=== PATIENT | male | born 1950 | race Caucasian/White ===

== ENCOUNTER → 2018-04-03 12:20 | Outpatient (CLI) | payer MEDICARE, SELFPAY ==
[2018-04-03 12:46] LABS: ALB/GLOB Ratio 0.9 RATIO (0.9-2.4); AST(SGOT) 15 U/L (15-37); Alanine Aminotransfer ALT/SGPT 25 U/L (16-61); Albumin, Serum 3.4 g/dL (3.2-5.0); Alkaline Phosphatase 72 U/L (45-117); Anion Gap 4 (5-15); BUN 18 mg/dL (7-18); BUN/Creat Ratio 19.8 RATIO (10-20); Calcium,Total 8.5 mg/dL (8.5-10.1); Chloride 106 mmol/L (98-107); Cholesterol 150 mg/dL (200); Creatinine, Serum 0.91 mg/dL (0.70-1.30); EST Glomerular Filtration Rate 88 mL/min (>60); Est Glom Filt Rate - Afr Amer 107 mL/min (>60); Globulin 3.7 g/dL (2.2-4.2); Glucose 113 mg/dL (74-106); High Density Lipoprotein 41 mg/dL; Potassium 4.1 mmol/L (3.5-5.1); Protein, Total 7.1 g/dL (6.4-8.2); Sodium Level 139 mmol/L (136-145); Triglycerides 157 mg/dL; Very Low Density Lipoprotein 31 mg/dL (5-40)
== END ==
PROVIDERS: Family Provider Family Medicine; PCP Family Medicine; Visit Provider Family Medicine
DX: Z00.00 Encounter for general adult medical examination without abnormal findings (principal); I10 Essential (primary) hypertension
CPT/HCPCS: 80053; 80061

== ENCOUNTER → 2019-09-11 09:53 | Outpatient (CLI) | payer MEDICARE, OTHER, SELFPAY ==
[2019-09-11 09:41] VITALS: BMI 29.8
--- NOTE | 2019-09-11 09:59 | RAD_ITS ---
HISTORY: PAIN ADDITIONAL HISTORY: None provided. TECHNIQUE: Right hip 2 views with AP pelvis Number of images including paperwork: 3 COMPARISON: None FINDINGS: BONES: No acute fracture. JOINTS: No subluxation. Mild degenerative changes of the hips and sacroiliac joints. Degenerative changes of the lumbar spine partially visualized. SOFT TISSUES: No distinct foreign body. RAD/HIP, UNI W/ Pelvis 2-3 Views IMPRESSION: Degenerative changes without acute osseous abnormality. at 2338 Reported and signed by: Amisha Wen MD Electronically Signed: Amisha Wen MD at 23:38 EST Tel , Service support ,
--- NOTE | 2019-09-11 09:59 | RAD_ITS ---
HISTORY: PAIN TECHNIQUE: Lumbar spine 6 views, including AP, bilateral oblique and lateral views in neutral, flexion and extension Number of images including paperwork: 6 COMPARISON: None FINDINGS: VERTEBRAE: No acute fracture. VERTEBRAL ALIGNMENT: No traumatic subluxation. No instability noted with its use flexion and extension. Approximately 7 of left convex lumbar curvature. DISKS AND JOINTS: Severe discogenic degenerative changes and facet arthropathy are noted at L3-4, L4-5 and L5-S1. Mild discogenic degenerative changes elsewhere in the lumbar spine. SOFT TISSUES: Unremarkable paraspinous soft tissues. RAD/L/S Spine w Bend Min 6 Vw IMPRESSION: Degenerative changes without acute osseous abnormality. at 2321 Reported and signed by: Amisha Wen MD Electronically Signed: Amisha Wen MD at 23:21 EST Tel , Service support ,
== END ==
PROVIDERS: Family Provider Family Medicine; PCP Family Medicine; Referring Provider Orthopaedic Surgery; Visit Provider Orthopaedic Surgery
DX: M54.5 Low back pain (principal); M25.551 Pain in right hip
CPT/HCPCS: 72114; 73502

== ENCOUNTER 2019-10-29 09:30 | Outpatient (RCR) | payer MEDICARE, OTHER, SELFPAY ==
[2019-09-11 09:41] VITALS: BMI 29.8
--- NOTE | 2019-09-24 10:42 | HP.PTEVAL_ITS ---
Patient's Visit Information LIZ ACE is a 69 year old M referred to Physical Therapy by Marcello Gonzalez DO with a diagnosis of LUMBAR DDD W/REFERRED PAIN. RIGHT HIP FLEXOR TENDONITIS.. Date of Evaluation: 09/24/19 Physical Therapist: Liza Roy, PT, Cert MDT - Visit Plan Frequency: 2-3x /Week Duration: 4-6 Weeks Plan: AQUATIC THERAPY FOR PAIN RELEIF, POSTURE CORRECTION/STRENGTHENING, INSTRUCTION IN APPROPRIATE BODY MECHANICS AND ACTIVITY MODIFICATIONS. DLS STARTING WITH A NEUTRAL SPINE PROGRESSING ROM TOLERATED. DIMITRY LE ROM, STRETCHING AND STRENGTHENING. HEP INSTRUCTION. - Subjective Findings: Work/Leisure: [employer] - ABOUT 25 HOURS A WEEK. Disability: NO. Present symptoms: RIGHT HIP PAIN. LOW BACK PAIN (WENT TO [facility] LAST NIGHT AND HELPED). RIGHT THIGH NUMBNESS. Present since: ABOUT 3 WKS AGO. Pain Scale: WORST 7/10, LEAST 0/10. Currently: 5/10. Commenced as a result of: NO APPARENT REASON. Symptoms at onset: RIGHT HIP. Worse: WALKING, STEPS, BENDING, LIFTING, PICKING RIGHT LEG UP. Better: SITTING, LYING STILL. Disturbed sleep: YES. Previous history/Previous treatment: CHRONIC LBP. H/O CHIROPRACTIC. WENT A COUPLE WEEKS AGO WHEN IT FIRST STARTED AND LAST NIGHT. NO PT, IGOR'S OR BACK SURGERY. Coughing/sneezing/straining: NEGATIVE. Gait: LIMPING ON RIGHT LE. Difficulty initiating urinatin: NO. Accidents: NO. Unexplained weight loss: NO. Imaging: MILD DEG CHANGES OF THE HIPS AND SI JTS - RECENT X-RAY. LUMBAR: No traumatic subluxation. No instability noted with. its use flexion and extension. Approximately 7 of left convex lumbar. curvature. DISKS AND JOINTS: Severe discogenic degenerative changes and facet. arthropathy are noted at L3-4, L4-5 and L5-S1. Mild discogenic degenerative. changes elsewhere in the lumbar spine. SOFT TISSUES: Unremarkable paraspinous soft tissues. PMH: HTN. Recent major surgery:LEFT ANKLE ORIF - FOOT DROP. - Objective Sitting/Standing Posture: POOR. FH, RS, REDUCED LORDOSIS BUT NO RELEVENT LATERAL SHIP. Active Correction of posture: BETTER - ABOLISHES HIP/THIGH PAIN AND REDUCES LBP. Other Observations: INDEP GAIT INTO PT LIMPING ON RIGHT LE. Motor deficit: RIGHT HIP FLEX AND ABD 4/5. LEFT FOOT DROP. Sensory deficit: RIGHT LATERAL PROX THIGH AND LEFT THIN AND ANKLE. ROM deficit: TIGHT DIMITRY HIP FLEXORS, HS'S AND GASTROC SOLEUS COMPLEX'S. Reflexes: UNABLE TO ELICIT DIMITRY LE'S. DECREASE DIMITRY HIP IR AND ER (IR VERY LIMITED DIMITRY). Dural Signs: NEGATIVE DIMITRY LE'S. Lumbar mvmt loss: flex - MIN - RIGHT HIP/LATERAL PROX THIGH PAIN. ext - CHICHO - MILD INCREASED RIGHT THIGH PAIN. R SG - MOD - MILD INCREASED RIGHT THIGH PAIN. L SG - MOD - MILD INCREASED RIGHT THIGH PAIN. Core strength: POOR. Palpation: NO ACUTE THORACIC, LUMBAR OR HIP TENDERNESS WITH PALPATION. - Goals Goal 1:: DECREASE C/O BACK AND RIGHT LE SX'S. Goal Time Frame: 4-6 Weeks Goal 2:: IMPROVE BENDING, LIFTING, WALKING, STANDING, SLEEP, SOCIAL LIFE AND WORK FUNCTION Goal Time Frame: 4-6 Weeks Goal 3:: INSTRUCT IN PROPHYLAXIS Goal Time Frame: 4-6 Weeks - Rehabilitation Potential Rehabilitation Potential: Fair - Anticipated Interventions Patient/Client Instruction: Educate patient on: Condition, Plan of Care, Risk Factors, Benefits of Fitness Program For the Purpose of:: To improve self management Therapeutic Exercise to Include: Strength training, Body mechanics, Postural training, Flexibilty training, Gait and locomotor training, In an aquatic setting, Dynamic Lumbar Stabilization For the Purpose of:: To decrease pain, To decrease swelling/inflammation, To improve muscle performance and motor function, To increase tolerance to activity/condition/position, To improve ability of physical actions for home/community/work/leisure, To improve gait and locomotor functions Thank you for the opportunity to evaluate your patient. For Medicare and Medicare HMO plans, please review the plan of care and approve it. It will need to be FAXED BACK to us at [phone] for Medicare purposes. For Medicare only, by signing this I certify the plan of care. Please let me know if there are questions or concerns regarding this plan of care. Physician Signature: __Date:
--- NOTE | 2019-10-29 10:13 | HP.PTDCSUM ---
HP - PT D/C Summary It has been my pleasure to treat LIZ ACE under orders from Marcello Gonzalez DO, for the diagnosis of LUMBAR DDD W/REFERRED PAIN. RIGHT HIP FLEXOR TENDONITIS. for a total of 10 visit(s). Discharge Date: 10/29/19 Please see the following information for a summary of their discharge status. - Subjective Subjective: PATIENT REPORTS HE IS DOING BETTER. STATES HIS THIGH DOESN'T BURN LIKE IT DID. MORNINGS ARE GOING BETTER. THINGS ARE A LOT EASIER IN THE POOL TOO. MASSAGE PENDING THIS MONTH. FOLLOWED UP WITH DR. GOLDSTEIN YESTERDAY AND INJECTION RECOMMENDED. STATES HE WAS REFERRED TO PAIN MGMT. STATES DR. GOLDSTEIN WANTS HIM TO TRY A HIP INJECTION. STATES DR. GOLDSTEIN SAID HE MIGHT NEED A HIP REPLACEMENT. GETTING UP TO 4/10 PAIN AT WORST IN RIGHT HIP NOW. USUALLY ONLY 1 OR 2 /10 PAIN AT WORST IN BACK. - Pain R LE Pain Intensity (Out of 10): 0 Lumbar Spine Pain Intensity (Out of 10): 1 - Overall Improvement % Improvement: 75 - Objective Objective/Function: PATIENT IS NOW IMPROVING. HE PLANS TO GET A MEMBERSHIP TO A POOL TO CONTINUE WATER EX WHILE AWAITING PAIN MGMT CONSULT. UPON EXAM TODAY HE STILL HAS LIMITED LUMBAR ROM BUT LESS PAIN WITH TESTING FOLLOWS: Lumbar mvmt loss: flex - MIN. ext - CHICHO - MILD INCREASED RIGHT THIGH PAIN. R SG - MOD. L SG - MOD - MILD INCREASED RIGHT THIGH PAIN. HE CONTINUES TO HAVE A POSTIVE RIGHT HIP ARAVIND TEST. LUMBAR OSWESTRY HAS IMPROVED FROM 13 TO 7. - Goals Goal 1:: DECREASE C/O BACK AND RIGHT LE SX'S. Goal Progress: Progressing Goal 2:: IMPROVE BENDING, LIFTING, WALKING, STANDING, SLEEP, SOCIAL LIFE AND WORK FUNCTION Goal Progress: Progressing Goal 3:: INSTRUCT IN PROPHYLAXIS Goal Progress: Progressing - Plan Plan: D/C TO INDEP POOL EX AT THIS TIME AND PAIN MGMT CONSULT. PATIENT IS AGREEABLE. - D/C Information If there are questions or concerns regarding this patient's physical therapy, please feel free to call me at [phone]. Thank you for the referral of this patient. Sincerely, Liza Roy, PT, Cert MDT
== END 2019-10-29 19:00 | disposition home or self-care (01) ==
LOC: PT 09:30
PROVIDERS: Family Provider Family Medicine; PCP Family Medicine; Referring Provider Orthopaedic Surgery; Visit Provider Orthopaedic Surgery
DX: M76.891 Other specified enthesopathies of right lower limb, excluding foot (principal); M51.36 Other intervertebral disc degeneration, lumbar region
CPT/HCPCS: 97113; 97162; 97530

== ENCOUNTER → 2019-11-29 17:30 | Outpatient (CLI) | payer MEDICARE, OTHER, SELFPAY ==
[2019-10-28 10:52] VITALS: BMI 29.8
--- NOTE | 2019-11-29 17:37 | MRI_ITS ---
STUDY: MRI LUMBAR SPINE WITHOUT CONTRAST REASON FOR EXAM: Male, 69 years old. Back pain and right hip pain for 6 months TECHNIQUE: Standardized fat and water weighted pulse sequences were obtained in the sagittal and axial planes. COMPARISON: Plain films 19 September 2019 FINDINGS: Lumbar spine is intact and aligned with normal marrow with superimposed subchondral and endplate degenerative change. Paraspinous soft tissues and superior portions of SI joints are normal. There is a presumed left renal cyst. Conus medullaris terminates at T12-L1. Cauda equina is restricted at multiple levels. L2-L3 has a right central disc protrusion with moderate thecal sac stenosis. There is mild bilateral foraminal stenosis. L3-L4 has moderate circumferential spondylotic thecal sac stenosis and moderate bilateral foraminal stenosis. L4-L5 has moderate to severe circumferential spondylotic thecal sac stenosis with severe left and moderate right foraminal stenosis and left greater than right lateral recess stenosis. L5-S1 has patent canal and lateral recesses with moderate bilateral foraminal stenosis. MRI/Spine Lumbar (Routine) IMPRESSION: 1. 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 Neurosurgical referral is advised. Electronically Signed: Paulette Castano, at 16:39 EST Tel , Service support ,
== END ==
PROVIDERS: PCP Family Medicine; Referring Provider Anesthesiology Pain Medicine; Visit Provider Anesthesiology Pain Medicine
DX: M47.816 Spondylosis without myelopathy or radiculopathy, lumbar region (principal); M48.061 Spinal stenosis, lumbar region without neurogenic claudication; M79.606 Pain in leg, unspecified
CPT/HCPCS: 72148

== ENCOUNTER → 2021-08-06 06:48 | Outpatient (CLI) | payer MEDICARE, OTHER, SELFPAY ==
--- NOTE | 2021-08-06 07:02 | RAD_ITS ---
STUDY: X-RAY BONE LENGTH REASON FOR EXAM: Male, 71 years old. UNEQUAL LIMB LENGTH LFT FEMUR TECHNIQUE: 3 views of the lower extremities was additional stitched view. COMPARISON: None. FINDINGS: Uncomplicated left distal fibular surgical fixation. Bilateral genu valgus, right greater than left. Bilateral ankle valgus. Right lower extremity measures approximately 98.5 cm. Left lower extremity measures approximately 100 cm. Bilateral knee medial compartment arthroplasty. Moderate/severe right hip osteoarthritis. Normal soft tissue structures. RAD/Bone Length IMPRESSION: Left lower extremity measures approximately 1.5 cm greater than the right Moderate/severe right hip osteoarthritis Mild bilateral knee medial compartment osteoarthritis Uncomplicated left distal fibular surgical fixation Electronically Signed: Mathew Sanchez DO at 8:28 EDT Tel , Service support ,
== END ==
PROVIDERS: PCP Family Medicine; Referring Provider Specialist; Visit Provider Specialist
DX: M21.752 Unequal limb length (acquired), left femur (principal); M16.11 Unilateral primary osteoarthritis, right hip; M17.0 Bilateral primary osteoarthritis of knee
CPT/HCPCS: 77073

== ENCOUNTER → 2021-09-24 09:43 | Outpatient (CLI) | payer MEDICARE, OTHER, SELFPAY ==
--- NOTE | 2021-09-24 09:51 | EKG12_ITS ---
Test Reason : PREOP Blood Pressure : / mmHG Vent. Rate : 071 BPM Atrial Rate : 071 BPM P-R Int : 174 ms QRS Dur : 088 ms QT Int : 404 ms P-R-T Axes : 029 -08 015 degrees QTc Int : 439 ms Normal sinus rhythm Normal ECG Confirmed by SID BRIGGS, ASAEL ([id number]), editorial specialist MICHAEL MARK ([id number]) on 09/27/2021 9:15:29 AM Referred By: Rosibel Limon Confirmed By:WARREN LAU MD
--- NOTE | 2021-09-24 09:54 | RAD_ITS ---
HISTORY: Preop hip replacement EXAMINATION/TECHNIQUE: XR Chest 2 Views COMPARISON: None FINDINGS: LINES/DEVICES: None. LUNGS: No overt pulmonary edema. No focal airspace consolidation. No sizable pleural effusion. No pneumothorax detected. MEDIASTINUM AND CARDIOVASCULAR STRUCTURES: Heart size within normal limits for imaging technique. Atherosclerotic calcifications along the aorta. BONES AND SOFT TISSUES: Skeletal degenerative changes. RAD/Chest PA and Lateral IMPRESSION: No radiographic evidence of acute cardiopulmonary disease. at 0155 Reported and signed by: Jose Juan Joya MD Electronically Signed: Jose Juan Joya MD at 1:54 EST Tel , Service support ,
[2021-09-24 11:07] LABS: Absolute Lymphocyte Count 2.43 X10^3/uL (0.83-4.51); Absolute Neutrophil Count 5.7 X10^3/uL (2.0-7.7); Basophil# 0.05 X10^3/uL; Basophil% 0.5 % (0-1); Eosinophil# 0.13 X10^3/uL; Eosinophils% 1.4 % (0-5); Hematocrit 42.1 % (40-54); Hemoglobin 13.6 g/dL (13.0-16.5); Lymphocyte # 2.43 X10^3/ul (0.83-4.51); Lymphocyte % 26.3 % (19-41); Mean Corp Hgb Conc 32.3 g/dL (32-36); Mean Corpuscular Hgb 30.8 pg (27.0-32.0); Mean Corpuscular Volume 95.2 fL (80-94); Mean Platelet Vol. 10.6 fl (6.2-12.0); Monocyte# 0.91 X10^3/uL; Monocyte% 9.8 % (0-10); NRBC Flagged by Analyzer 0 % (0-5); Neutrophil # 5.65 X10^3/uL (2.7-7.7); Neutrophil % 61.1 % (47-70); Platelet Count 225 K/mm3 (150-450); RBC Distribution Width CV 12.6 % (11.6-14.6); Red Blood Count 4.42 M/mm3 (4.6-6.2); White Blood Count 9.3 K/mm3 (4.4-11.0)
[2021-09-24 11:49] LABS: Albumin, Serum 3.5 g/dL (3.2-5.0); Anion Gap 6 (5-15); BUN 20 mg/dL (7-18); BUN/Creat Ratio 24.2 RATIO (10-20); Chloride 104 mmol/L (98-107); Creatinine, Serum 0.82 mg/dL (0.70-1.30); EST Glomerular Filtration Rate 98 mL/min (>60); Est Glom Filt Rate - Afr Amer 119 mL/min (>60); Glucose 113 mg/dL (74-106); Potassium 3.8 mmol/L (3.5-5.1); Sodium Level 139 mmol/L (136-145)
== END ==
PROVIDERS: PCP Family Medicine; Referring Provider Physician Assistant Surgical; Visit Provider Physician Assistant Surgical
DX: Z01.810 Encounter for preprocedural cardiovascular examination (principal); Z01.811 Encounter for preprocedural respiratory examination; Z01.818 Encounter for other preprocedural examination
CPT/HCPCS: 36415; 71046; 80048; 82040; 85025; 93005

== ENCOUNTER → 2021-09-29 12:08 | Outpatient (CLI) | payer MEDICARE, OTHER, SELFPAY ==
[2021-09-29 16:24] LABS: Probe Check PASS; Specimen Processing Control PASS
== END ==
PROVIDERS: PCP Family Medicine; Referring Provider Specialist; Visit Provider Specialist
DX: Z20.822 Contact with and (suspected) exposure to COVID-19 (principal)
CPT/HCPCS: 87635; C9803; U0005; U0003

== ENCOUNTER → 2025-01-29 | Outpatient (CLI) | payer MEDICARE, SELFPAY ==
--- NOTE | 2025-01-29 14:07 | NEURO_ITS ---
NCS and/or EMG Patient Report Ordering Doctor: Sejal Noel DATE OF SERVICE: 01/29/25 Dilan presents with complaints of numbness and weakness in the legs, primarily on the left side. Electrodiagnostic findings left peroneal motor nerve demonstrates borderline prolonged latency with reduced amplitude. Right peroneal motor response measures that tibialis anterior is within normal limits. There is long left tibial motor latency with decreased amplitude and decreased conduction velocity. Prolonged right tibial motor latency with normal amplitude and reduced conduction velocity. Prolonged left superficial peroneal latency. Absent left and right sural responses. Long left tibial and right tibial F?wave. Needle EMG testing was performed the lower limbs. 1+ complex repetitive discharges noted in the right gastrocnemius. Decreased recruitment in the left tibialis anterior. Electrodiagnostic impression: This an abnormal study in the lower limbs 1 Electrodiagnostic findings suggestive of peripheral polyneuropathy, with motor and sensory nerve involvement. There is evidence of axonal loss and [place]. 2.No electrodiagnostic evidence is noted for lumbosacral radiculopathy. Multi Select Codes Neurology Neurology Interp Codes: 22701-67 Musc test done w/n test comp (interp) (2) and 61752-41 Nrv cndj test 9-10 studies (interp)
== END | disposition home or self-care (01) ==
LOC: PSN 06:30
PROVIDERS: PCP Family Medicine; Referring Provider Podiatrist; Visit Provider Podiatrist
DX: G64 Other disorders of peripheral nervous system (principal)
CPT/HCPCS: 95886; 95912